=== PATIENT | female | born 2000 | race Caucasian/White ===

== ENCOUNTER 2019-08-18 18:33 | Emergency (ER) | payer MEDICAID ==
[~2019-08-18] VITALS: Ht 172.7 cm; Wt 86.2 kg
[2019-08-18 18:59] VITALS: BP_SYST 111
--- NOTE | 2019-08-19 | NUR ---
Called pt in, no answer
--- NOTE | 2019-08-19 | NUR ---
Patient left without being seen. No further treatment provided. ER MD aware
== END 2019-08-19 | disposition left against medical advice (07) ==
LOC: SED 18:33
DX: R07.9 Chest pain, unspecified (principal); Z53.21 Procedure and treatment not carried out due to patient leaving prior to being seen by health care provider